=== PATIENT | female | born 1990 | race American Indian/Alaskan Native ===

== ENCOUNTER 2017-09-21 21:08 | Observation (INO) | payer OTHER ==
[2017-09-21 21:17] VITALS: BMI 32.3
--- NOTE | 2017-09-21 21:19 | ED PDOC ---
Arrival/HPI - General Time Seen by Provider: 09/21/17 21:13 Historian: Patient - History of Present Illness Narrative History of Present Illness (Text): 09/21/17 21:14 27 y/o female, no significant pmh, approx. 9 weeks , nkda, c/o headache started yesterday with no fall or trauma. Aching and throbbing, tightness headache around the headache, no change in vision, no nausea or vomiting, no night sweat, no rash, no vaginal bleeding or discharge, no pelvic pain, no numbness or tingling, no other medical or psychological complaints. Past Medical History - Provider Review Nursing Documentation Reviewed: Yes Family/Social History - Physician Review Nursing Documentation Reviewed: Yes Family/Social History: Unknown Family HX Allergies/Home Meds Allergies/Adverse Reactions: Allergies No Known Allergies Allergy (Verified 09/21/17 21:20) Home Medications: Home Meds Medication Instructions Recorded Confirmed No Known Home Med 09/22/17 09/22/17 Review of Systems - Review of Systems Constitutional: absent: Fatigue, Weight Change Eyes: absent: Vision Changes ENT: absent: Hearing Changes Respiratory: absent: SOB, Cough Cardiovascular: absent: Chest Pain Gastrointestinal: absent: Abdominal Pain, Nausea, Vomiting Musculoskeletal: absent: Arthralgias, Back Pain Skin: absent: Rash, Pruritis Neurological: Headache. absent: Dizziness Psychiatric: absent: Anxiety, Depression Physical Exam Vital Signs Temp Pulse Resp BP Pulse Ox 09/22/17 02:11 70 16 126/73 100 09/21/17 22:02 81 18 121/74 09/21/17 21:50 98.4 F 81 18 136/79 100 Pain Distress: Severe - Systems Exam Head: Present: Atraumatic, Normocephalic, Other (no temporal tenderness). No: Tenderness, Contusion, Swelling, Ecchymosis, Abrasion, Laceration Pupils: Present: PERRL Extroacular Muscles: Present: EOMI Conjunctiva: Present: Normal Mouth: Present: Moist Mucous Membranes Nose (External): Present: Atraumatic. No: Abrasion, Contusion, Laceration Nose (Internal): Present: Normal Inspection, No Active Bleeding. No: Rhinorrhea , Septal Hematoma, Epistaxis Neck: Present: Normal Range of Motion, Trachea Midline. No: Meningeal Signs, MIDLINE TENDERNESS, Paraspinal Tenderness, Lymphadenopathy Respiratory/Chest: Present: Clear to Auscultation, Good Air Exchange. No: Respiratory Distress, Accessory Muscle Use Cardiovascular: Present: Regular Rate and Rhythm, Normal S1, S2. No: Murmurs Abdomen: Present: Normal Bowel Sounds. No: Tenderness, Distention, Peritoneal Signs, Rebound, Guarding Back: Present: Normal Inspection Upper Extremity: Present: Normal Inspection. No: Cyanosis, Edema Lower Extremity: Present: Normal Inspection. No: Edema Neurological: Present: GCS=15, CN II-XII Intact, Speech Normal, Motor Func Grossly Intact, Gait Normal, Memory Normal Skin: Present: Warm, Dry, Normal Color. No: Rashes Psychiatric: Present: Alert, Oriented x 3, Normal Insight, Normal Concentration Medical Decision Making ED Course and Treatment: 09/21/17 21:21 -UA -IVF/reglan (confirmed with Dr. Almaguer)/benadryl/tylenol -oberve and reassess 09/22/17 01:26 -Urine hcg is positive -UA show +UTI -Labs are non-significant -Pt. still having significant amount of headache but afebrile, still having 8/ 10 headache, will need MRI of the head as she is to rule out mass lesion -I will admit the patient for observation for MRI head w/o contrast. -Case discussed with Dr. Almaguer, he examined the patient and agreed this patient need to be kept over night. -I spoke to the medical operations supervisor DR. Alfaro and Dr. Pardo, agreed to observe the patient over night and they will follow up with the MRI result tomorrow. -Pt. agreed to be admitted as her headache only decrease slightly. -Me and Dr. Almaguer offered alternative pain medication but patient refused at this time until MRI is out. - Lab Interpretations Lab Results: 09/21/17 22:45 09/21/17 23:55 Lab Results 09/21/17 23:55: Sodium 140, Potassium 3.5 L, Chloride 108 H, Carbon Dioxide 22, Anion Gap 14, BUN 6 L, Creatinine 0.6 L, Est GFR ( Amer) > 60, Est GFR ( Non-Af Amer) > 60, Random Glucose 90, Calcium 9.5, Total Bilirubin 0.3, AST 15, ALT 22, Alkaline Phosphatase 57, Total Protein 7.5, Albumin 4.0, Globulin 3.5, Albumin/Globulin Ratio 1.2 09/21/17 22:45: WBC 11.6 H, RBC 4.60, Hgb 13.1, Hct 38.6, MCV 83.9, MCH 28.5, MCHC 33.9, RDW 14.0, Plt Count 397, MPV 9.8, Gran % 82.3 H, Lymph % (Auto) 14.2 L, [place] % (Auto) 3.4, Eos % (Auto) 0.0 L, Baso % (Auto) 0.1, Gran # 9.55 H, Lymph # (Auto) 1.7, [place] # (Auto) 0.4, Eos # (Auto) 0.0, Baso # (Auto) 0.01 09/21/17 09:46: Urine Color Yellow, Urine Appearance Sl cloudy, Urine pH 6.5, Ur Specific [place] 1.025, Urine Protein Trace H, Urine Glucose (UA) Negative, Urine Ketones >=80, Urine Blood Negative, Urine Nitrate Negative, Urine Bilirubin Negative, Urine Urobilinogen 0.2, Ur Leukocyte Esterase Small H, Urine RBC 0 - 2, Urine WBC 2 - 5, Ur Epithelial Cells Many, Urine Bacteria Many - RAD Interpretation Radiology Orders: 09/22/17 01:32 BRAIN WITHOUT CONTRAST [MRI] Routine - Medication Orders Current Medication Orders: Acetaminophen (Tylenol 325mg Tab) 650 mg PO Q4 PRN PRN Reason: Headache Last Admin: 09/22/17 06:59 Dose: 650 mg [facility] Pain/Vitals Document 09/22/17 06:59 MAD (Rec: 09/22/17 07:00 MAD [facility] [id number]) Pain Reassessment Is This A Pain ReAssessment? Yes Sleep Is patient sleeping during reassessment? No Presence of Pain Presence of Pain Yes Location Pain Location Body Site Parietal Description Throbbing Intensity 8 Scale Used Numeric Pain Behavior Moaning Alleviating Factors Medication Re-Assess: [facility] Pain/Vitals Document 09/22/17 07:59 MCV (Rec: 09/22/17 09:59 MCV [facility] [place]-[id number]) Pain Reassessment Is This A Pain ReAssessment? Yes Presence of Pain Presence of Pain Yes Pain Scale Used Pain Scale Used Numeric Location Pain Location Body Granulator Tender Description Pressure Intensity 5 Scale Used Numeric Pain Behavior Restlessness Facial Grimacing Aggravating Factors None Alleviating Factors Medication Magnesium Sulfate 2 gm/ Sodium (Chloride) 104 mls @ 102 mls/hr IVPB ONCE ONE Stop: 09/22/17 15:14 Ceftriaxone Sodium (Rocephin 2 Gm Ivpb) 2 gm in 100 mls @ 100 mls/hr IVPB Q12H MARTHA PRN Reason: Protocol Ampicillin 2 gm/ Sodium (Chloride) 100 mls @ 200 mls/hr IVPB Q4 MARTHA PRN Reason: Protocol Ibuprofen (Motrin Tab) 600 mg PO Q6H PRN PRN Reason: breakthrough mild pain Discontinued Medications Acetaminophen (Tylenol 325mg Tab) 650 mg PO STAT STA Stop: 09/21/17 21:23 Last Admin: 09/21/17 21:49 Dose: 650 mg MAR Pain/Vitals Document 09/21/17 21:49 AD (Rec: 09/21/17 21:50 AD [id number]) Pain Reassessment Is This A Pain ReAssessment? No Presence of Pain Presence of Pain Yes Pain Scale Used Pain Scale Used Numeric Location Pain Location Body Granulator Tender Intensity 8 Scale Used Numeric Pain Behavior Facial Grimacing Diphenhydramine HCl (Benadryl) 50 mg IVP STAT STA Stop: 09/21/17 21:23 Last Admin: 09/21/17 21:49 Dose: 50 mg IVP Administration Document 09/21/17 21:49 AD (Rec: 09/21/17 21:49 AD [id number]) Charges for Administration # of IVP Administrations 1 Sodium Chloride (Sodium Chloride 0.9%) 1,000 mls @ 999 mls/hr IV .Q1H1M STA Stop: 09/21/17 22:22 Last Admin: 09/21/17 21:49 Dose: 999 mls/hr eMAR Start Stop Document 09/21/17 21:49 AD (Rec: 09/21/17 21:49 AD [id number]) Intravenous Solution Start Date 09/21/17 Start Time 21:49 Potassium Chloride (Potassium Chloride 10 Meq/100 Ml) 10 meq in 100 mls @ 50 mls/hr IVPB ONCE ONE Stop: 09/22/17 04:15 Last Admin: 09/22/17 03:45 Dose: 50 mls/hr eMAR Start Stop Document 09/22/17 03:45 MAD (Rec: 09/22/17 03:45 [id number]) Intravenous Solution Start Date 09/22/17 Start Time 03:45 Ampicillin 2 gm/ Sodium (Chloride) 100 mls @ 200 mls/hr IVPB Q4 MARTHA PRN Reason: Protocol Lidocaine HCl (Lidocaine 2% 20ml Vial) 20 ml IJ ONCE STA Stop: 09/22/17 12:31 Metoclopramide HCl (Reglan) 10 mg IVP STAT STA Stop: 09/21/17 21:23 Last Admin: 09/21/17 21:49 Dose: 10 mg IVP Administration Document 09/21/17 21:49 AD (Rec: 09/21/17 21:49 AD [id number]) Charges for Administration # of IVP Administrations 1 Nitrofurantoin Macrocrystals (Macrobid) 100 mg PO STAT STA PRN Reason: Protocol Stop: 09/22/17 01:35 Last Admin: 09/22/17 01:59 Dose: 100 mg Potassium Chloride (Potassium Chloride Oral Soln) 40 meq PO ONCE ONE Stop: 09/22/17 09:07 Last Admin: 09/22/17 09:58 Dose: 40 meq - PA / PICKLE CUTTER / Resident Statement MD/DO has reviewed & agrees with the documentation as recorded. MD/DO has examined the patient and agrees with the treatment plan. Disposition/Present on Arrival - Present on Arrival Any Indicators Present on Arrival: No History of DVT/PE: No History of Uncontrolled Diabetes: No Urinary Catheter: No History of Decub. Ulcer: No - Disposition Have Diagnosis and Disposition been Completed?: Yes Diagnosis: UTI (urinary tract infection), Headache Disposition: HOSPITALIZED Disposition Time: 21:21 Patient Plan: Admission, Observation Patient Problems: Current Active Problems Problem Status Onset UTI (urinary tract infection) Acute Headache Acute Condition: STABLE
[2017-09-21] MEDS ORDERED: DiphenhydrAMINE 50 mg/ml Inj IVP STA (21:22)
[2017-09-21] MEDS ORDERED: Sodium Chloride 0.9% 1,000 ML IV STA (21:22)
[2017-09-21 22:00] LABS: PH,URINE 6.5 (4.7-8.0); URINE BILIRUBIN NEGATIVE (NEGATIVE); URINE BLOOD NEGATIVE (NEGATIVE); URINE GLUCOSE (UA) NEGATIVE (NEGATIVE); URINE LEUKOCYTE ESTERASE SMALL Leu/uL (NEGATIVE); URINE PROTEIN TRACE mg/dL (<30 mg/dL); URINE UROBILINOGEN 0.2 E.U./dL (<1 E.U./dL)
[2017-09-21 22:02] LABS: URINE APPEARANCE SL CLOUDY (CLEAR); URINE COLOR YELLOW (YELLOW)
[2017-09-21 22:12] LABS: URINE BACTERIA MANY (NEG); URINE EPITHELIAL CELLS MANY /hpf (0-5); URINE RBC 0 - 2 /hpf (0-2)
[2017-09-21 23:26] LABS: BASO # 0.01 K/mm3 (0.0-2.0); BASO % 0.1 % (0.0-3.0); GRAN # 9.55 (1.4-6.5); GRAN % 82.3 % (50.0-68.0); HEMOGLOBIN 13.1 g/dL (12.0-16.0); LYMPH # 1.7 (1.2-3.4); LYMPH % 14.2 % (22.0-35.0); MEAN CELL VOLUME 83.9 fl (80.0-105.0); MEAN CORPUSCULAR HEMOGLOBIN 28.5 pg (25.0-35.0); MEAN CORPUSCULAR HGB CONC 33.9 g/dl (31.0-37.0); MEAN PLATELET VOLUME 9.8 fl (7.0-11.0); MONO # 0.4 (0.1-0.6); MONO % 3.4 % (1.0-6.0); RBC 4.6 10^6/uL (3.5-6.1); WHITE BLOOD COUNT 11.6 10^3/ul (4.5-11.0)
[2017-09-22 00:12] LABS: ALB/GLOB RATIO 1.2 (1.1-1.8); ALT/SGPT 22 U/L (7-56); AST/SGOT 15 U/L (14-36); BLOOD UREA NITROGEN 6 mg/dL (7-21); CALCIUM 9.5 mg/dL (8.4-10.5); GFR AFRICAN-AMERICAN > 60; GFR NON-AFRICAN AMERICAN > 60
--- NOTE | 2017-09-22 02:13 | CP.PCM.HP ---
<Tj Alfaro - Last Filed: 09/22/17 02:18> History of Present Illness - History of Present Illness History of Present Illness: Subjective: CC: Headache HPI: Patient is a 27 year old female with no significant past medical history of who presents to the emergency department for evaluation and treatment of headache which began on 09/21/16 at approximately 5am. Pt states the headache woke her up from sleep without any specific provoking event. Characterizes it has being a dull aching sensation that remains localized to the crown of the skull. Denies exacerbating and remitting factors. Denies associated visual and auditory changes. Denies trauma to the head and loss of consciousness. Tried OTC dayquil and Tylenol without any relief. Admits to associated bouts of nausea and nonbloody nonbilious vomitting x 4. Denies recent travel and sick contacts. Denies recent change in diet. It is important to note that the patient estimates that she is currently 9 weeks . Patient denies intractable fever, chills, dizziness, blurry vision, ringing in the ears, chest pain, shortness of breath, abdominal pain, diarrhea, constipation, and urinary symptoms. ROS: 12 point review of systems negative except as indicated in HPI PMHx: denies PSHx: denies Family Hx: denies Social Hx: denies ETOH use, tobacco use, illicit drug use Medications: Please see medication reconciliation PMD: denies Pharmacy: does not take medications at home Physical Examination: - Constitutional Appears: Non-toxic, No Acute Distress - Head Exam Head Exam: atraumatic, normocephalic - Eye Exam Eye Exam: Normal appearance, PERRL. absent: Scleral icterus - ENT Exam ENT Exam: Mucous Membranes Moist - Neck Exam Neck exam: Normal Inspection - Respiratory Exam Respiratory Exam: Normal Breathing Pattern - Cardiovascular Exam Cardiovascular Exam: +S1, +S2. absent: Gallop, JVD - GI/Abdominal Exam GI & Abdominal Exam: Normal Bowel Sounds - Extremities Exam Extremities exam: Negative for: calf tenderness - Neurological Exam Neurological exam: Patient is awake, alert, responds to verbal stimuli, answers questions appropriately, follows commands, and moves extremities past midline, CN II- XII intact - Psychiatric Exam Psychiatric exam: Normal Affect, Normal Mood - Skin Skin Exam: warm and dry Assessment and Plan: Patient is a 27 year old female with no significant past medical history of who was admitted for evaluation and treatment of a headache, nausea, and vomiting. Headache - tylenol PRN pain - MRI of head ordered by ED MAGNETIC PROSPECTING SUPERVISOR and is pending at time of admission Nausea/Vomitting - regular diet as tolerated - zofran prn nausea after QTc established with EKG Hypokalemia - repleted - mag level ordered - monitor closely via CMP Prophylaxis - DVT ppx- scds - GI ppx- famotidine Patient case discussed with and plan approved by attending physician. Present on Admission - Present on Admission Any Indicators Present on Admission: No Past Patient History - Past Social History Smoking Status: Never Smoked - PSYCHIATRIC Hx Substance Use: No - SURGICAL HISTORY Hx Surgeries: No - ANESTHESIA Hx Anesthesia: No Hx Anesthesia Reactions: No Hx Malignant Hyperthermia: No Meds Allergies/Adverse Reactions: Allergies Allergy/AdvReac Type Severity Reaction Status Date / Time No Known Allergies Allergy Verified 09/21/17 21:20 Results - Vital Signs Recent Vital Signs: Last Vital Signs Temp 98.4 F 09/21/17 21:50 Pulse 81 09/21/17 22:02 Resp 18 09/21/17 22:02 BP 121/74 09/21/17 22:02 Pulse Ox 100 09/21/17 21:50 - Labs Result Diagrams: 09/21/17 22:45 09/21/17 23:55 Labs: Laboratory Results - last 24 hr 09/21/17 09/21/17 09/21/17 09:46 22:45 23:55 WBC 11.6 H RBC 4.60 Hgb 13.1 Hct 38.6 MCV 83.9 MCH 28.5 MCHC 33.9 RDW 14.0 Plt Count 397 MPV 9.8 Gran % 82.3 H Lymph % (Auto) 14.2 L [place] % (Auto) 3.4 Eos % (Auto) 0.0 L Baso % (Auto) 0.1 Gran # 9.55 H Lymph # (Auto) 1.7 [place] # (Auto) 0.4 Eos # (Auto) 0.0 Baso # (Auto) 0.01 Sodium 140 Potassium 3.5 L Chloride 108 H Carbon Dioxide 22 Anion Gap 14 BUN 6 L Creatinine 0.6 L Est GFR ( Amer) > 60 Est GFR (Non-Af Amer) > 60 Random Glucose 90 Calcium 9.5 Total Bilirubin 0.3 AST 15 ALT 22 Alkaline Phosphatase 57 Total Protein 7.5 Albumin 4.0 Globulin 3.5 Albumin/Globulin Ratio 1.2 Urine Color Yellow Urine Appearance Sl cloudy Urine pH 6.5 Ur Specific [place] 1.025 Urine Protein Trace H Urine Glucose (UA) Negative Urine Ketones >=80 Urine Blood Negative Urine Nitrate Negative Urine Bilirubin Negative Urine Urobilinogen 0.2 Ur Leukocyte Esterase Small H Urine RBC 0 - 2 Urine WBC 2 - 5 Ur Epithelial Cells Many Urine Bacteria Many <Sandor Pardo MD - Last Filed: 09/23/17 11:59> Results - Vital Signs Recent Vital Signs: Last Vital Signs Temp 98.9 F 09/23/17 08:51 Pulse 83 09/23/17 08:51 Resp 20 09/23/17 08:51 BP 105/64 09/23/17 08:51 Pulse Ox 97 09/23/17 08:51 - Labs Result Diagrams: 09/23/17 06:30 09/23/17 06:30 Labs: Laboratory Results - last 24 hr 09/22/17 09/22/17 09/22/17 14:00 14:00 14:00 WBC RBC Hgb Hct MCV MCH MCHC RDW Plt Count MPV Gran % Lymph % (Auto) [place] % (Auto) Eos % (Auto) Baso % (Auto) Gran # Lymph # (Auto) [place] # (Auto) Eos # (Auto) Baso # (Auto) ESR 20 Sodium Potassium Chloride Carbon Dioxide Anion Gap BUN Creatinine Est GFR ( Amer) Est GFR (Non-Af Amer) Random Glucose Calcium Total Bilirubin AST ALT Alkaline Phosphatase C-Reactive Protein 15.70 H Total Protein Albumin Globulin Albumin/Globulin Ratio RPR Nonreactive 09/23/17 09/23/17 06:30 06:30 WBC 12.1 H RBC 4.08 Hgb 11.3 L Hct 34.5 L MCV 84.6 MCH 27.7 MCHC 32.8 RDW 14.2 Plt Count 311 MPV 9.1 Gran % 80.9 H Lymph % (Auto) 14.8 L [place] % (Auto) 4.0 Eos % (Auto) 0.2 L Baso % (Auto) 0.1 Gran # 9.77 H Lymph # (Auto) 1.8 [place] # (Auto) 0.5 Eos # (Auto) 0.0 Baso # (Auto) 0.01 ESR Sodium 141 Potassium 3.6 Chloride 107 Carbon Dioxide 23 Anion Gap 15 BUN 4 L Creatinine 0.6 L Est GFR ( Amer) > 60 Est GFR (Non-Af Amer) > 60 Random Glucose 106 Calcium 9.1 Total Bilirubin 0.3 AST 15 ALT 20 Alkaline Phosphatase 55 C-Reactive Protein Total Protein 7.5 Albumin 3.8 Globulin 3.7 Albumin/Globulin Ratio 1.0 L RPR Attending/Attestation - Attestation I have personally seen and examined this patient.: Yes I have fully participated in the care of the patient.: Yes I have reviewed all pertinent clinical information: Yes Notes (Text): -I agree with the above H&P completed by the resident physician with the following additions and/or changes: -The patient is a 28 year old women, who is 9 weeks , presenting with intractable headache with associated N/V. She denies focal deficits, syncope, dysuria or F/C. Because CT-head is contraindicated in this patient, she will be admitted for observation in order to obtain a brain MRI to r/o bleed. Of note, her UA shows some bacturia and therefore a urine culture will be obtained and empiric treatment should be started. PRN Tylenol for headache.
--- NOTE | 2017-09-22 06:49 | CP.PCM.PN ---
Subjective - Date & Time of Evaluation Date of Evaluation: 09/22/17 Time of Evaluation: 06:49 - Subjective Subjective: # 22 angiocath was inserted in right hand dorsum. Dx: Poor venous access. Objective - Vital Signs/Intake and Output Vital Signs (last 24 hours): Temp Pulse Resp BP Pulse Ox 98.6 F 67 18 95/48 L 100 09/22/17 04:51 09/22/17 04:51 09/22/17 04:51 09/22/17 04:51 09/22/17 02:11 Intake and Output: 09/21/17 09/22/17 18:59 06:59 Intake Total 60 Balance 60 - Medications Medications: Current Medications Acetaminophen (Tylenol 325mg Tab) 650 mg PO Q4 PRN PRN Reason: Headache Last Admin: 09/22/17 02:59 Dose: 650 mg
[2017-09-22 08:11] LABS: EOS % 0.1 % (1.5-5.0); GRAN # 9.49 (1.4-6.5); HEMOGLOBIN 11.8 g/dL (12.0-16.0); LYMPH # 1.5 (1.2-3.4); LYMPH % 13.1 % (22.0-35.0); MEAN CELL VOLUME 83.9 fl (80.0-105.0); MEAN CORPUSCULAR HEMOGLOBIN 28.4 pg (25.0-35.0); MEAN CORPUSCULAR HGB CONC 33.8 g/dl (31.0-37.0); MEAN PLATELET VOLUME 9.4 fl (7.0-11.0); MONO # 0.6 (0.1-0.6); MONO % 4.8 % (1.0-6.0); RBC 4.16 10^6/uL (3.5-6.1); RED CELL DISTRIBUTION WIDTH 13.9 % (11.5-14.5); WHITE BLOOD COUNT 11.6 10^3/ul (4.5-11.0)
[2017-09-22 08:27] LABS: ALB/GLOB RATIO 1.2 (1.1-1.8); ALBUMIN 4.1 g/dL (3.0-4.8); ALT/SGPT 17 U/L (7-56); AST/SGOT 22 U/L (14-36); BLOOD UREA NITROGEN 5 mg/dL (7-21); CALCIUM 9.9 mg/dL (8.4-10.5); GFR AFRICAN-AMERICAN > 60; GFR NON-AFRICAN AMERICAN > 60
[2017-09-22] MEDS ORDERED: Potassium Chloride 40 mEq/30 ml LIQ UD PO ONE (09:06)
[2017-09-22] MEDS ORDERED: Lidocaine 2% Inj (20ml) IJ STA (12:30)
--- NOTE | 2017-09-22 14:02 | PCM.PROC ---
Procedures Attestation:: I certify that I have explained the specified Operation(s) or Procedure(s), risks, benefits and reasonable alternatives to the Patient and/or other person responsible. The opportunity was given to ask questions and all questions answered - Lumbar Puncture Consent Obtained: Written Consent Time Out Performed: Yes Patient Position: Right Lateral Decubitius Skin Prep: Povidone-Iodine 1% Local Anesthetic Used: Lidocaine 2% Spinal Needle Gauge: 20G Interspace Used: L4-L5 Complications: Unable to obtain CSF
[2017-09-22] MEDS ORDERED: Magnesium Sulfate 2 GM in Sodium Chloride 0.9% 100 ML IVPB ONE ×2 (14:13→21:30)
--- NOTE | 2017-09-22 14:34 | MRI ---
PROCEDURE: MRI BRAIN WITHOUT CONTRAST HISTORY: headache, approx 8-9 weeks COMPARISON: None. TECHNIQUE: Multiplanar, multisequence MR images of the brain were obtained without intravenous contrast enhancement. FINDINGS: HEMORRHAGE: None DWI: No evidence of an acute or early subacute infarction. BRAIN PARENCHYMA: No mass effect or edema. No atrophy or chronic microvascular ischemic changes. VENTRICLES: Unremarkable. No hydrocephalus. CRANIUM: Unremarkable. ORBITS: Grossly unremarkable. PARANASAL SINUSES/MASTOIDS: Clear VASCULAR SYSTEM: Skull base flow voids intact. OTHER FINDINGS: None. IMPRESSION: Unremarkable non contrast enhanced MRI of the brain.
--- NOTE | 2017-09-22 14:50 | CARD ---
APPROVED REPORT EKG Measurement Heart [id number] <Conclusion> Normal sinus rhythm Normal ECG
[2017-09-22] MEDS: cefTRIAXone 2 GM IN NS 2 GM/100 ML BAG IVPB SCH (15:14)
[2017-09-22] MEDS ORDERED: AMPicillin 2 GM in Sodium Chloride 0.9% 100 ML IVPB SCH (16:00)
--- NOTE | 2017-09-22 16:18 | MRI ---
PROCEDURE: MRA and MRV brain dated 09/22/2017 HISTORY: Rule out CVT; per neurology; include venous phase COMPARISON: Correlation made with concurrent MRI brain. TECHNIQUE: 3D time of flight MR angiography of the intracranial arteries was performed. Rotating maximum intensity projection images were generated. FINDINGS: INTERNAL CAROTID ARTERIES: The distal internal carotid arteries including the petrous segments are widely patent. There does appear to be some mild localized narrowing of the proximal right-sided cavernous segment. The supraclinoid carotid arteries are widely patent as are the remaining. ANTERIOR CEREBRAL ARTERIES: Unremarkable. A1 and A2 segments are widely patent. Smaller distal branches unremarkable, as visualized. MIDDLE CEREBRAL ARTERIES: Unremarkable. M1 and M2 segments are widely patent. Perisylvian branches grossly symmetric. POSTERIOR CIRCULATION: Basilar Artery: Unremarkable. Distal Vertebral Arteries: Unremarkable. Posterior Cerebral Arteries: Unremarkable. Posterior Inferior Cerebellar Arteries: Unremarkable. ANEURYSM/ VASCULAR MALFORMATIONS: No evidence of large aneurysm nor vascular malformation. OTHER FINDINGS: MR venography demonstrates patent sagittal sinus as well as patent prominent right-sided transverse sigmoid sinus and jugular vein. The left transverse sinus is not visualized and may in fact be hypoplastic as there are no significant increased collateral or dilatation of cortical draining veins left cerebral hemisphere so far as can be seen. No definitive thrombosis is identified on standard MRI brain. The left sigmoid sinus is diminutive with apparent diminutive left jugular bulb and jugular vein. IMPRESSION: The no evidence of occlusion of the cerebral vasculature however there does appear to be mild localized narrowing of the proximal right cavernous carotid segment. Otherwise unremarkable MRA brain. The sagittal sinus is patent with no evidence of thrombosis. There is prominent right transverse and sigmoid sinus as well as jugular bulb. The left transverse sinus is not seen and the left sigmoid sinus and jugular bulb are diminutive. 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 Clinical correlation recommended
--- NOTE | 2017-09-22 17:12 | CP.PCM.CON ---
History of Present Illness - History of Present Illness History of Present Illness: Ms. Quiles is a 27-year-old woman with no significant past medical history, who is 9 weeks , and developed the sudden onset of severe headache last night (at around 3 AM) that was associated with nausea, vomiting. She presented to the ED and labs showed a mild leukocytosis. She did not have fever. There was concern for meningitis, so an LP was attempted. However, I did not feel this was a significant concern. I ordered MRI as well as MRA/V without contrast and there was not any definitive pathology noted. Review of Systems - Review of Systems All systems: reviewed and no additional remarkable complaints except Past Patient History - Past Social History Smoking Status: Never Smoked - MUSCULOSKELETAL/RHEUMATOLOGICAL Hx Falls: No - GENITOURINARY/GYNECOLOGICAL Hx Urinary Tract Infection: Yes Other/Comment: 8-9 weeks - PSYCHIATRIC Hx Substance Use: No - SURGICAL HISTORY Hx Surgeries: No - ANESTHESIA Hx Anesthesia: No Hx Anesthesia Reactions: No Hx Malignant Hyperthermia: No Meds Allergies/Adverse Reactions: Allergies Allergy/AdvReac Type Severity Reaction Status Date / Time No Known Allergies Allergy Verified 09/21/17 21:20 - Medications Medications: Current Medications Acetaminophen (Tylenol 325mg Tab) 650 mg PO Q4 PRN PRN Reason: Headache Last Admin: 09/22/17 06:59 Dose: 650 mg Ceftriaxone Sodium (Rocephin 2 Gm Ivpb) 2 gm in 100 mls @ 100 mls/hr IVPB Q12H [facility] PRN Reason: Protocol Last Admin: 09/22/17 15:14 Dose: 100 mls/hr Ampicillin 2 gm/ Sodium (Chloride) 100 mls @ 200 mls/hr IVPB Q4 [facility] PRN Reason: Protocol Ibuprofen (Motrin Tab) 600 mg PO Q6H PRN PRN Reason: breakthrough mild pain Last Admin: 09/22/17 15:15 Dose: 600 mg Physical Exam - Constitutional Appears: Well - Head Exam Head Exam: ATRAUMATIC, NORMAL INSPECTION, NORMOCEPHALIC - Eye Exam Eye Exam: EOMI, Normal appearance, PERRL - Respiratory Exam Respiratory Exam: Clear to Auscultation Bilateral, NORMAL BREATHING PATTERN - Cardiovascular Exam Cardiovascular Exam: REGULAR RHYTHM - GI/Abdominal Exam GI & Abdominal Exam: Normal Bowel Sounds, Soft. absent: Tenderness - Rectal Exam Rectal Exam: Deferred - Neurological Exam Neurological exam: Alert, CN II-XII Intact, Normal Gait, Oriented x3, Reflexes Normal Additional comments: Speech is fluent, no dysarthria, memory and attention are intact. She is AAOX3. Full strength throughout out. Normal reflexes. Normal sensation. She complained of headache, not neck pain with sudden neck flexion, but was able to touch chin to chest without stiffness. Kernig was negative. Brudzinsky was negative. Gait is normal. Results - Vital Signs Recent Vital Signs: Last Vital Signs Temp 98.9 F 09/22/17 07:00 Pulse 90 09/22/17 07:00 Resp 20 09/22/17 07:00 BP 115/71 09/22/17 07:00 Pulse Ox 98 09/22/17 07:00 - Labs Result Diagrams: 09/22/17 07:00 09/22/17 07:00 Labs: Laboratory Results - last 24 hr 09/22/17 09/22/17 09/22/17 02:30 07:00 07:00 WBC 11.6 H RBC 4.16 Hgb 11.8 L Hct 34.9 L MCV 83.9 MCH 28.4 MCHC 33.8 RDW 13.9 Plt Count 351 MPV 9.4 Gran % 82.0 H Lymph % (Auto) 13.[address] [place] % (Auto) 4.8 Eos % (Auto) 0.1 L Baso % (Auto) 0.0 Gran # 9.49 H Lymph # (Auto) 1.5 [place] # (Auto) 0.6 Eos # (Auto) 0.0 Baso # (Auto) 0.00 Sodium 138 Potassium 3.2 L Chloride 106 Carbon Dioxide 22 Anion Gap 13 BUN 5 L Creatinine 0.6 L Est GFR ( Amer) > 60 Est GFR (Non-Af Amer) > 60 Random Glucose 92 Calcium 9.9 Magnesium 1.8 Total Bilirubin 0.3 AST 22 ALT 17 Alkaline Phosphatase 75 Total Protein 7.5 Albumin 4.1 Globulin 3.4 Albumin/Globulin Ratio 1.2 Assessment & Plan (1) Headache Assessment and Plan: May be tension related. Unlikely to be meningitis and unlikely to be CVT. Other causes could be due to hormonal changes in . She states that the magnesium sulfate has brought the headache down from 10/10 to 5/10. She is improving. I recommend another dose of magnesium sulfate 2 grams IV in 6 hours. IF the patient is stable and pain is improved. She may be discharged home with treatment for UTI and magnesium oxide 400 mg PO Q12. Follow up with outpatient neurology. Thank you. Status: Acute Priority: High
[2017-09-22] MEDS: AMPicillin 2 GM in Sodium Chloride 0.9% 100 ML IVPB SCH ×2 (18:00→22:33)
--- NOTE | 2017-09-23 01:53 | CON ---
DATE: 09/22/2017 LOCATION: The patient is seen earlier this morning in 573, bed 1. CHIEF COMPLAINT: Sudden onset of headaches x1 day. HISTORY OF PRESENT ILLNESS: This is a 27-year-old female originally from [facility], last visit from [facility] was in 04/2017 who is now 9 weeks with no significant past medical history, admitted with a new-onset of headache. She denies any fevers or any chills. No blurred vision. No sore throat. No ear aches, no oral lesions, no nasal pain, just the headache on top of her head. She states she has never had a headache like this and she normally does get headaches every now and then, but it has never been this severe. REVIEW OF SYSTEMS: Reveals no abdominal pain, diarrhea, or constipation. No pelvic pain. No dysuria or frequency. No fevers or chills. No rash. No joint pain. PAST MEDICAL HISTORY: Noncontributory. She states that she has not had any medical problems in the past. She takes no medications. PAST SURGICAL HISTORY: Noncontributory. She has not had any operations. SOCIAL HISTORY: Her boyfriend is at the bedside and she is not an intravenous drug abuser and she does not use any alcohol. At this time, she does not have any doctor. She has not received any care. Has no pets. No recent travel except in April to [facility]. ALLERGIES: SHE DOES NOT HAVE ANY ALLERGIES TO ANY ANTIBIOTICS. MEDICATIONS: She takes no medications. PHYSICAL EXAMINATION: GENERAL: She is in bed, nontoxic. She is answering questions appropriately. VITAL SIGNS: Temperature of 98.9, pulse of 81 to 90, respiratory rate of 20, and blood pressure is 121/70, it was down to 95/48 and 115/71. HEENT: Pupils are equal, reactive to light and accommodation. Extraocular muscles intact. Conjunctiva is pink. The oral cavity is normal. She has two necrotic teeth on the right side and one necrotic tooth on the left side. The ear examinations are all within limits. The sinus examination on palpation and percussion is normal. No evidence of sinus infections. NECK: Supple, no lymphadenopathy, no thyromegaly, no masses. LUNGS: Clear. HEART: Normal S1, S2. ABDOMEN: Soft, nontender. No organomegaly, no rebound or guarding. LABORATORY DATA: Reveals a white count of 11,600; hemoglobin of 13, platelets of 397. Chemistry reveals a BUN of 6, creatinine of 0.6. Urinalysis is noted where patient has many bacteria, many epithelial cells, 2 to 3 wbc's, slightly cloudy. Patient's emergency room chart is reviewed. EKG is noted. Patient also had an MRI of the brain, which is an unremarkable noncontrast MRI of the brain. History and physical examination by Dominic was reviewed. Patient also had an MRA of the brain, the results are not available at this time, and Dr. Eh Lang's procedure note is reviewed for a spinal tap. Emergency room chart is reviewed. ASSESSMENT AND PLAN: This is a 27-year-old female from [facility], 9 weeks with a new onset of headache. No other evidence of meningitis; however, we will start empiric ceftriaxone and ampicillin, also Listeria commonly occurs in third trimester, this patient is not behaving like meningitis, the onset of the headache is acute. There is no fevers, mild leukocytosis; however, we will treat with the ampicillin and ceftriaxone. We will check on the culture, blood cultures, urine cultures, spinal cord cultures. Awaiting for spinal cord cell count, glucose, protein, Gram stain, and we will also order an HIV test, an RPR and a HIV PCR, and we will make further recommendations upon availability of initial results. Pending pancultures, sedimentation rate, C-reactive protein, and a vasculitis workup. Jonah Amaya MD
[2017-09-23] MEDS: AMPicillin 2 GM in Sodium Chloride 0.9% 100 ML IVPB SCH ×5 (02:06→16:37)
[2017-09-23] MEDS: cefTRIAXone 2 GM IN NS 2 GM/100 ML BAG IVPB SCH ×2 (02:43→14:07)
[2017-09-23 07:07] LABS: BASO # 0.01 K/mm3 (0.0-2.0); BASO % 0.1 % (0.0-3.0); EOS % 0.2 % (1.5-5.0); GRAN # 9.77 (1.4-6.5); GRAN % 80.9 % (50.0-68.0); HEMOGLOBIN 11.3 g/dL (12.0-16.0); LYMPH # 1.8 (1.2-3.4); LYMPH % 14.8 % (22.0-35.0); MEAN CELL VOLUME 84.6 fl (80.0-105.0); MEAN CORPUSCULAR HEMOGLOBIN 27.7 pg (25.0-35.0); MEAN CORPUSCULAR HGB CONC 32.8 g/dl (31.0-37.0); MEAN PLATELET VOLUME 9.1 fl (7.0-11.0); MONO # 0.5 (0.1-0.6); RBC 4.08 10^6/uL (3.5-6.1); RED CELL DISTRIBUTION WIDTH 14.2 % (11.5-14.5); WHITE BLOOD COUNT 12.1 10^3/ul (4.5-11.0)
[2017-09-23 07:26] LABS: ALBUMIN 3.8 g/dL (3.0-4.8); ALT/SGPT 20 U/L (7-56); AST/SGOT 15 U/L (14-36); BLOOD UREA NITROGEN 4 mg/dL (7-21); CALCIUM 9.1 mg/dL (8.4-10.5); GFR AFRICAN-AMERICAN > 60; GFR NON-AFRICAN AMERICAN > 60
[2017-09-23] MEDS: Magnesium Oxide 400 mg Tab UD PO SCH ×2 (12:26→17:22)
--- NOTE | 2017-09-23 16:25 | CP.PCM.PN ---
Subjective - Date & Time of Evaluation Date of Evaluation: 09/23/17 Time of Evaluation: 10:20 - Subjective Subjective: Still with headache but much better, no fevers, no dysuria currently. Objective - Vital Signs/Intake and Output Vital Signs (last 24 hours): Temp Pulse Resp BP Pulse Ox 98.9 F 83 20 105/64 97 09/23/17 08:51 09/23/17 08:51 09/23/17 08:51 09/23/17 08:51 09/23/17 08:51 Intake and Output: 09/23/17 09/23/17 06:59 18:59 Intake Total 1040 300 Balance 1040 300 - Medications Medications: Current Medications Acetaminophen (Tylenol 325mg Tab) 650 mg PO Q4 PRN PRN Reason: Headache Last Admin: 09/23/17 06:07 Dose: 650 mg Folic Acid (Folic Acid) 1 mg PO DAILY [facility] Last Admin: 09/23/17 12:25 Dose: 1 mg Ceftriaxone Sodium (Rocephin 2 Gm Ivpb) 2 gm in 100 mls @ 100 mls/hr IVPB Q12H [facility] PRN Reason: Protocol Last Admin: 09/23/17 14:07 Dose: 100 mls/hr Ampicillin 2 gm/ Sodium (Chloride) 100 mls @ 200 mls/hr IVPB Q4 [facility] PRN Reason: Protocol Last Admin: 09/23/17 12:26 Dose: 200 mls/hr Magnesium Oxide (Mag-Ox) 400 mg PO BID [facility] Last Admin: 09/23/17 12:26 Dose: 400 mg - Labs Labs: 09/23/17 06:30 09/23/17 06:30 - Constitutional Appears: Chronically Ill - Head Exam Head Exam: NORMAL INSPECTION - ENT Exam ENT Exam: Mucous Membranes Moist - Neck Exam Neck Exam: absent: Meningismus - Respiratory Exam Respiratory Exam: Decreased Breath Sounds - Cardiovascular Exam Cardiovascular Exam: +S1, +S2 - GI/Abdominal Exam GI & Abdominal Exam: Soft. absent: Tenderness Assessment and Plan - Assessment and Plan (Free Text) Plan: Assessment R/O UTI with gram positive cocci headache likely related to Plan On Ampicillin and Rocephin - can d/c Ampicillin and follow up identification and sensitivities of the gram positive cocci in the urine
--- NOTE | 2017-09-23 17:16 | CP.PCM.PN ---
<Eh Lang - Last Filed: 09/23/17 17:12> Subjective - Date & Time of Evaluation Date of Evaluation: 09/23/17 Time of Evaluation: 07:30 - Subjective Subjective: Eh Lang DO PGY1 - IM Progress Note Patient seen and examined at bedside. Per nursing staff, no acute events overnight. Yesterday, patient underwent workup for meningitis and cavernous sinus thrombosis. Index of suspicion was low, but soft signs of each were persistently present on exam. Today, headache is moderately improved. Nausea and vomiting has resolved. She denies photophobia, fever, chills. Denies chest pain, shortness of breath, abdominal pain. Denies dysuria, hematuria, urgency, or frequency. Objective - Vital Signs/Intake and Output Vital Signs (last 24 hours): Temp Pulse Resp BP Pulse Ox 98.6 F 76 18 126/78 100 09/23/17 14:00 09/23/17 14:00 09/23/17 14:00 09/23/17 14:00 09/23/17 14:00 Intake and Output: 09/23/17 09/23/17 06:59 18:59 Intake Total 1040 300 Balance 1040 300 - Medications Medications: Current Medications Acetaminophen (Tylenol 325mg Tab) 650 mg PO Q4 PRN PRN Reason: Headache Last Admin: 09/23/17 06:07 Dose: 650 mg Folic Acid (Folic Acid) 1 mg PO DAILY [facility] Last Admin: 09/23/17 12:25 Dose: 1 mg Ceftriaxone Sodium (Rocephin 2 Gm Ivpb) 2 gm in 100 mls @ 100 mls/hr IVPB Q12H [facility] PRN Reason: Protocol Last Admin: 09/23/17 14:07 Dose: 100 mls/hr Magnesium Oxide (Mag-Ox) 400 mg PO BID [facility] Last Admin: 09/23/17 12:26 Dose: 400 mg - Labs Labs: 09/23/17 06:30 09/23/17 06:30 - Constitutional Appears: Non-toxic, In Acute Distress (moderate, due to headache, 6/10 in severity) - Head Exam Head Exam: ATRAUMATIC, NORMOCEPHALIC - Eye Exam Eye Exam: EOMI, Normal appearance, PERRL Pupil Exam: NORMAL ACCOMODATION - ENT Exam ENT Exam: Mucous Membranes Moist - Neck Exam Neck Exam: Normal Inspection Additional comments: No stiffness. Severe vertex pain with flexion and extension, especially with rapid movements - Respiratory Exam Respiratory Exam: Clear to Ausculation Bilateral, NORMAL BREATHING PATTERN - Cardiovascular Exam Cardiovascular Exam: RRR, +S1, +S2 - GI/Abdominal Exam GI & Abdominal Exam: Soft, Normal Bowel Sounds. absent: Tenderness - Extremities Exam Extremities Exam: Normal Inspection. absent: Calf Tenderness, Pedal Edema - Neurological Exam Neurological Exam: Alert, Awake, CN II-XII Intact, Oriented x3 - Psychiatric Exam Psychiatric exam: Normal Affect, Normal Mood - Skin Skin Exam: Dry, Intact, Normal Color Assessment and Plan - Assessment and Plan (Free Text) Assessment: Patient is a 27 year old female with no significant past medical history of who was admitted for evaluation and treatment of a headache, nausea, and vomiting. Headache - Slightly improved with magnesium - Continue Mag Ox 400 PO BID per neurology - MRI/MRA/MRV unremarkable; no signs of acute thrombosis - LP attempted, unable to collect CSF - No meningismus, negative kernig, negative brudzniki - Mild leukocytosis; does not meet SIRS - Likely migraine vs induced Asymptomatic bacteruria - Urine culture shows gram positive cocci; unknown species and sentivities - Continue rocephin per ID Nausea/Vomitting - Resolved Prophylaxis - DVT ppx- scds - GI ppx- famotidine Patient case discussed with and plan approved by attending Dr. Benitez <Gilberto Benitez - Last Filed: 09/23/17 17:41> Objective - Vital Signs/Intake and Output Vital Signs (last 24 hours): Temp Pulse Resp BP Pulse Ox 98.6 F 76 18 126/78 100 09/23/17 14:00 09/23/17 14:00 09/23/17 14:00 09/23/17 14:00 09/23/17 14:00 - Medications Medications: Current Medications Acetaminophen (Tylenol 325mg Tab) 650 mg PO Q4 PRN PRN Reason: Headache Last Admin: 09/23/17 06:07 Dose: 650 mg Folic Acid (Folic Acid) 1 mg PO DAILY [facility] Last Admin: 09/23/17 12:25 Dose: 1 mg Ceftriaxone Sodium (Rocephin 2 Gm Ivpb) 2 gm in 100 mls @ 100 mls/hr IVPB Q12H [facility] PRN Reason: Protocol Last Admin: 09/23/17 14:07 Dose: 100 mls/hr Magnesium Oxide (Mag-Ox) 400 mg PO BID [facility] Last Admin: 09/23/17 17:22 Dose: 400 mg Attending/Attestation - Attestation I have personally seen and examined this patient.: Yes I have fully participated in the care of the patient.: Yes I have reviewed all pertinent clinical information, including history, physical exam and plan: Yes Notes (Text): 09/23/17 17:40 Medical record note made by the resident after discussion with my direction and input after the patient was personally seen and examined by me. I have reviewed the chart and agree that the record accurately reflects by personal performance of the history, physical exam, data review, and medical decision-making, in the course for the patient. I have also personally directed the plan of care.
[2017-09-23 23:14] VITALS: RESP 20
[2017-09-24] MEDS: cefTRIAXone 2 GM IN NS 2 GM/100 ML BAG IVPB SCH ×2 (02:33→13:19)
[2017-09-24 07:26] LABS: BASO # 0.02 K/mm3 (0.0-2.0); BASO % 0.2 % (0.0-3.0); EOS % 0.4 % (1.5-5.0); GRAN # 5.98 (1.4-6.5); GRAN % 62.2 % (50.0-68.0); HEMOGLOBIN 11.3 g/dL (12.0-16.0); MEAN CELL VOLUME 84.5 fl (80.0-105.0); MEAN CORPUSCULAR HEMOGLOBIN 28.3 pg (25.0-35.0); MEAN CORPUSCULAR HGB CONC 33.5 g/dl (31.0-37.0); MEAN PLATELET VOLUME 8.8 fl (7.0-11.0); MONO # 0.6 (0.1-0.6); MONO % 6.2 % (1.0-6.0); RBC 3.99 10^6/uL (3.5-6.1); RED CELL DISTRIBUTION WIDTH 14.2 % (11.5-14.5); WHITE BLOOD COUNT 9.6 10^3/ul (4.5-11.0)
[2017-09-24 07:42] LABS: ALB/GLOB RATIO 1.1 (1.1-1.8); ALBUMIN 3.7 g/dL (3.0-4.8); ALT/SGPT 14 U/L (7-56); AST/SGOT 17 U/L (14-36); BLOOD UREA NITROGEN 4 mg/dL (7-21); CALCIUM 9.6 mg/dL (8.4-10.5); GFR AFRICAN-AMERICAN > 60; GFR NON-AFRICAN AMERICAN > 60
[2017-09-24 08:00] VITALS: BP 111/63; PULSE 66; TEMP 98.7; O2SAT 100
[2017-09-24] MEDS: Magnesium Oxide 400 mg Tab UD PO SCH (10:32)
--- NOTE | 2017-09-24 12:55 | CP.PCM.PN ---
Subjective - Date & Time of Evaluation Date of Evaluation: 09/24/17 Time of Evaluation: 11:50 - Subjective Subjective: No fevers, not in distress, no dysuria and never had urinary symptoms, headache is better. Objective - Vital Signs/Intake and Output Vital Signs (last 24 hours): Temp Pulse Resp BP Pulse Ox 98.7 F 66 20 111/63 100 09/24/17 07:59 09/24/17 07:59 09/24/17 07:59 09/24/17 07:59 09/24/17 07:59 Intake and Output: 09/24/17 09/24/17 06:59 18:59 Intake Total 1320 Balance 1320 - Medications Medications: Current Medications Acetaminophen (Tylenol 325mg Tab) 650 mg PO Q4 PRN PRN Reason: Headache Last Admin: 09/24/17 07:27 Dose: 650 mg Folic Acid (Folic Acid) 1 mg PO DAILY [facility] Last Admin: 09/24/17 10:32 Dose: 1 mg Ceftriaxone Sodium (Rocephin 2 Gm Ivpb) 2 gm in 100 mls @ 100 mls/hr IVPB Q12H [facility] PRN Reason: Protocol Last Admin: 09/24/17 02:33 Dose: 100 mls/hr Magnesium Oxide (Mag-Ox) 400 mg PO BID [facility] Last Admin: 09/24/17 10:32 Dose: 400 mg - Labs Labs: 09/24/17 07:22 09/24/17 07:22 - Constitutional Appears: Non-toxic - Head Exam Head Exam: NORMAL INSPECTION - ENT Exam ENT Exam: Mucous Membranes Moist - Neck Exam Neck Exam: absent: Meningismus - Respiratory Exam Respiratory Exam: absent: Rales, Rhonchi - Cardiovascular Exam Cardiovascular Exam: +S1, +S2 - GI/Abdominal Exam GI & Abdominal Exam: Soft. absent: Tenderness - Back Exam Back Exam: absent: CVA tenderness (L), CVA tenderness (R) Assessment and Plan - Assessment and Plan (Free Text) Plan: Assessment Corynebacterium contamination of the urine, has received 3 days of antibiotics already headache likely related to Plan has been on Ampicillin and Rocephin - has received 3 days of worth of antibiotics, which is within the 3-7 day recommended course for asymptomatic bacteriuria in - Corynebacterium is usually just contamination of urine, not a regular carlos enrique in the urogenital tract causing UTI, but nevertheless still received enough antibiotics
--- NOTE | 2017-09-24 17:16 | CP.PCM.DIS ---
<PreciousEh - Last Filed: 09/24/17 17:05> Provider - Provider Date of Admission: 09/22/17 01:34 Attending physician: Gilberto Benitez MD Consults: Neuro: Maira ID: [id number] Time Spent in preparation of Discharge (in minutes): 45 Diagnosis - Discharge Diagnosis (1) Headache Status: Acute Priority: High (2) UTI (urinary tract infection) Status: Acute Hospital Course - Lab Results Lab Results: Micro Results 09/22/17 10:00 Blood-Venous Blood Culture - Preliminary NO GROWTH AFTER 48 HOURS 09/22/17 09:40 Blood-Venous Blood Culture - Preliminary NO GROWTH AFTER 48 HOURS Most Recent Lab Values WBC 9.6 10^3/ul (4.5-11.0) D 09/24/17 07:22 RBC 3.99 10^6/uL (3.5-6.1) 09/24/17 07:22 Hgb 11.3 g/dL (12.0-16.0) L 09/24/17 07:22 Hct 33.7 % (36.0-48.0) L 09/24/17 07:22 MCV 84.5 fl (80.0-105.0) 09/24/17 07:22 MCH 28.3 pg (25.0-35.0) 09/24/17 07:22 MCHC 33.5 g/dl (31.0-37.0) 09/24/17 07:22 RDW 14.2 % (11.5-14.5) 09/24/17 07:22 Plt Count 305 10^3/uL (120.0-450.0) 09/24/17 07:22 MPV 8.8 fl (7.0-11.0) 09/24/17 07:22 Gran % 62.2 % (50.0-68.0) 09/24/17 07:22 Lymph % (Auto) 31.0 % (22.0-35.0) 09/24/17 07:22 Verm[place] % (Auto) 6.2 % (1.0-6.0) H 09/24/17 07:22 Eos % (Auto) 0.4 % (1.5-5.0) L 09/24/17 07:22 Baso % (Auto) 0.2 % (0.0-3.0) 09/24/17 07:22 Gran # 5.98 (1.4-6.5) 09/24/17 07:22 Lymph # (Auto) 3.0 (1.2-3.4) 09/24/17 07:22 [place] # (Auto) 0.6 (0.1-0.6) 09/24/17 07:22 Eos # (Auto) 0.0 (0.0-0.7) 09/24/17 07:22 Baso # (Auto) 0.02 K/mm3 (0.0-2.0) 09/24/17 07:22 ESR 20 mm/hr (0.0-20.0) 09/22/17 14:00 Sodium 140 mmol/L (132-148) 09/24/17 07:22 Potassium 3.6 mmol/L (3.6-5.0) 09/24/17 07:22 Chloride 108 mmol/L (98-107) H 09/24/17 07:22 Carbon Dioxide 25 mmol/L (21-33) 09/24/17 07:22 Anion Gap 11 (10-20) 09/24/17 07:22 BUN 4 mg/dL (7-21) L 09/24/17 07:22 Creatinine 0.6 mg/dl (0.7-1.2) L 09/24/17 07:22 Est GFR ( Amer) > 60 09/24/17 07:22 Est GFR (Non-Af Amer) > 60 09/24/17 07:22 Random Glucose 93 mg/dL (70-110) 09/24/17 07:22 Calcium 9.6 mg/dL (8.4-10.5) 09/24/17 07:22 Magnesium 1.8 mg/dL (1.7-2.2) 09/22/17 02:30 Total Bilirubin 0.2 mg/dL (0.2-1.3) 09/24/17 07:22 AST 17 U/L (14-36) 09/24/17 07:22 ALT 14 U/L (7-56) 09/24/17 07:22 Alkaline Phosphatase 57 U/L (38-126) 09/24/17 07:22 C-Reactive Protein 15.70 mg/L (0.0-9.9) H 09/22/17 14:00 Total Protein 7.1 g/dL (5.8-8.3) 09/24/17 07:22 Albumin 3.7 g/dL (3.0-4.8) 09/24/17 07:22 Globulin 3.4 gm/dL 09/24/17 07:22 Albumin/Globulin Ratio 1.1 (1.1-1.8) 09/24/17 07:22 Urine Color Yellow (YELLOW) 09/21/17 09:46 Urine Appearance Sl cloudy (CLEAR) 09/21/17 09:46 Urine pH 6.5 (4.7-8.0) 09/21/17 09:46 Ur Specific [place] 1.025 (1.005-1.035) 09/21/17 09:46 Urine Protein Trace mg/dL (<30 mg/dL) H 09/21/17 09:46 Urine Glucose (UA) Negative mg/dL (NEGATIVE) 09/21/17 09:46 Urine Ketones >=80 mg/dL (NEGATIVE) 09/21/17 09:46 Urine Blood Negative (NEGATIVE) 09/21/17 09:46 Urine Nitrate Negative (NEGATIVE) 09/21/17 09:46 Urine Bilirubin Negative (NEGATIVE) 09/21/17 09:46 Urine Urobilinogen 0.2 E.U./dL (<1 E.U./dL) 09/21/17 09:46 Ur Leukocyte Esterase Small Esteban/uL (NEGATIVE) H 09/21/17 09:46 Urine RBC 0 - 2 /hpf (0-2) 09/21/17 09:46 Urine WBC 2 - 5 /hpf (0-6) 09/21/17 09:46 Ur Epithelial Cells Many /hpf (0-5) 09/21/17 09:46 Urine Bacteria Many (NEG) 09/21/17 09:46 HCA Screen Negative (Negative) 09/22/17 14:00 CHA Titer TEST NOT PERFORMED 09/22/17 14:00 CHA Titer 2 TEST NOT PERFORMED 09/22/17 14:00 CHA Pattern TEST NOT PERFORMED 09/22/17 14:00 CHA Pattern 2 TEST NOT PERFORMED 09/22/17 14:00 RPR Nonreactive (NONREACTIVE) 09/22/17 14:00 HIV 1&2 Ag/Ab, 4th Gen Nonreactive (Nonreactive) 09/22/17 14:00 - Hospital Course Hospital Course: Patient is a 27 year old female with no significant past medical history of who presents to the emergency department for evaluation and treatment of headache which began on 09/21/16 at approximately 5am. Pt states the headache woke her up from sleep without any specific provoking event, associated with 4 bouts of nausea and vomiting. On the day of admission, patient had physical exam findings concerning for meningitis, though with low clinic index of suspicion. Lumbar puncture was attempted, but no CSF sample was obtained. Patient had MRI/MRA/MRV without contrast which were unremarkable. Patient remained afebrile, without leukocytosis or any SIRS criteria. Headache improved with IV, then PO, magnesium. Patient was also found to have asymptomatic bacteruria, which was concerning, and was treated, because of her current . Today, patient feels much better overall, though still with mild headache. She remains afebrile, and denies nausea or vomiting. Patient was advised to follow up with clinic at [facility]. She was given prescriptions for folic acid and magnesium supplements. Patient was treated for three days with IV antibiotics for asymptomatic bacteruria, though the culture grew cornybacterium, which is likely a contaminant. All questions were answered to her satisfaction, and she was discharged to home. Discharge Exam - Head Exam Head Exam: NORMAL INSPECTION - Eye Exam Eye Exam: EOMI, Normal appearance, PERRL - ENT Exam ENT Exam: Mucous Membranes Moist - Neck Exam Neck exam: Normal Inspection - Respiratory Exam Respiratory Exam: Clear to PA & Lateral, NORMAL BREATHING PATTERN - Cardiovascular Exam Cardiovascular Exam: RRR, +S1, +S2 - GI/Abdominal Exam GI & Abdominal Exam: Normal Bowel Sounds, Soft. absent: Tenderness - Extremities Exam Extremities exam: full ROM, normal inspection - Neurological Exam Neurological exam: Alert, CN II-XII Intact, Oriented x3, Reflexes Normal - Psychiatric Exam Psychiatric exam: Normal Affect, Normal Mood - Skin Skin Exam: Dry, Intact, Normal Color Discharge Plan - Discharge Medications Prescriptions: Folic Acid 1 mg PO DAILY #30 tab Magnesium Oxide [Mag-Ox] 400 mg PO BID #60 tab - Follow Up Plan Condition: STABLE Disposition: HOME/ ROUTINE Instructions: How to Plan and Prepare for a Healthy , Urinary Tract Infection in Women (DC), Acute Headache (DC) Additional Instructions: - Continue taking folate once daily - Purchase a multivitamin over the counter and take as described on the bottle - Continue taking magnesium oxide 400mg twice daily for headache prevention; if you get diarrhea, can cut back to once daily, or discontinue altogether - For breakthrough pain, take tylenol; avoid taking motrin/advil/aleve/ibuprofen /aspirin - Follow up with your primary care doctor within one week - Follow up with OBGYN clinic at [facility] on [address] within one week - For any new or worsening concerns, contact your PCP immediately or return to the ER <Gilberto Benitez - Last Filed: 09/24/17 17:32> Provider - Provider Date of Admission: 09/22/17 01:34 Attending physician: Gilberto Benitez MD Hospital Course - Lab Results Lab Results: Micro Results 09/22/17 10:00 Blood-Venous Blood Culture - Preliminary NO GROWTH AFTER 48 HOURS 09/22/17 09:40 Blood-Venous Blood Culture - Preliminary NO GROWTH AFTER 48 HOURS Most Recent Lab Values WBC 9.6 10^3/ul (4.5-11.0) D 09/24/17 07:22 RBC 3.99 10^6/uL (3.5-6.1) 09/24/17 07:22 Hgb 11.3 g/dL (12.0-16.0) L 09/24/17 07:22 Hct 33.7 % (36.0-48.0) L 09/24/17 07:22 MCV 84.5 fl (80.0-105.0) 09/24/17 07:22 MCH 28.3 pg (25.0-35.0) 09/24/17 07:22 MCHC 33.5 g/dl (31.0-37.0) 09/24/17 07:22 RDW 14.2 % (11.5-14.5) 09/24/17 07:22 Plt Count 305 10^3/uL (120.0-450.0) 09/24/17 07:22 MPV 8.8 fl (7.0-11.0) 09/24/17 07:22 Gran % 62.2 % (50.0-68.0) 09/24/17 07:22 Lymph % (Auto) 31.0 % (22.0-35.0) 09/24/17 07:22 [place] % (Auto) 6.2 % (1.0-6.0) H 09/24/17 07:22 Eos % (Auto) 0.4 % (1.5-5.0) L 09/24/17 07:22 Baso % (Auto) 0.2 % (0.0-3.0) 09/24/17 07:22 Gran # 5.98 (1.4-6.5) 09/24/17 07:22 Lymph # (Auto) 3.0 (1.2-3.4) 09/24/17 07:22 [place] # (Auto) 0.6 (0.1-0.6) 09/24/17 07:22 Eos # (Auto) 0.0 (0.0-0.7) 09/24/17 07:22 Baso # (Auto) 0.02 K/mm3 (0.0-2.0) 09/24/17 07:22 ESR 20 mm/hr (0.0-20.0) 09/22/17 14:00 Sodium 140 mmol/L (132-148) 09/24/17 07:22 Potassium 3.6 mmol/L (3.6-5.0) 09/24/17 07:22 Chloride 108 mmol/L (98-107) H 09/24/17 07:22 Carbon Dioxide 25 mmol/L (21-33) 09/24/17 07:22 Anion Gap 11 (10-20) 09/24/17 07:22 BUN 4 mg/dL (7-21) L 09/24/17 07:22 Creatinine 0.6 mg/dl (0.7-1.2) L 09/24/17 07:22 Est GFR ( Amer) > 60 09/24/17 07:22 Est GFR (Non-Af Amer) > 60 09/24/17 07:22 Random Glucose 93 mg/dL (70-110) 09/24/17 07:22 Calcium 9.6 mg/dL (8.4-10.5) 09/24/17 07:22 Magnesium 1.8 mg/dL (1.7-2.2) 09/22/17 02:30 Total Bilirubin 0.2 mg/dL (0.2-1.3) 09/24/17 07:22 AST 17 U/L (14-36) 09/24/17 07:22 ALT 14 U/L (7-56) 09/24/17 07:22 Alkaline Phosphatase 57 U/L (38-126) 09/24/17 07:22 C-Reactive Protein 15.70 mg/L (0.0-9.9) H 09/22/17 14:00 Total Protein 7.1 g/dL (5.8-8.3) 09/24/17 07:22 Albumin 3.7 g/dL (3.0-4.8) 09/24/17 07:22 Globulin 3.4 gm/dL 09/24/17 07:22 Albumin/Globulin Ratio 1.1 (1.1-1.8) 09/24/17 07:22 Urine Color Yellow (YELLOW) 09/21/17 09:46 Urine Appearance Sl cloudy (CLEAR) 09/21/17 09:46 Urine pH 6.5 (4.7-8.0) 09/21/17 09:46 Ur Specific [place] 1.025 (1.005-1.035) 09/21/17 09:46 Urine Protein Trace mg/dL (<30 mg/dL) H 09/21/17 09:46 Urine Glucose (UA) Negative mg/dL (NEGATIVE) 09/21/17 09:46 Urine Ketones >=80 mg/dL (NEGATIVE) 09/21/17 09:46 Urine Blood Negative (NEGATIVE) 09/21/17 09:46 Urine Nitrate Negative (NEGATIVE) 09/21/17 09:46 Urine Bilirubin Negative (NEGATIVE) 09/21/17 09:46 Urine Urobilinogen 0.2 E.U./dL (<1 E.U./dL) 09/21/17 09:46 Ur Leukocyte Esterase Small Esteban/uL (NEGATIVE) H 09/21/17 09:46 Urine RBC 0 - 2 /hpf (0-2) 09/21/17 09:46 Urine WBC 2 - 5 /hpf (0-6) 09/21/17 09:46 Ur Epithelial Cells Many /hpf (0-5) 09/21/17 09:46 Urine Bacteria Many (NEG) 09/21/17 09:46 CHA Screen Negative (Negative) 09/22/17 14:00 CHA Titer TEST NOT PERFORMED 09/22/17 14:00 CHA Titer 2 TEST NOT PERFORMED 09/22/17 14:00 CHA Pattern TEST NOT PERFORMED 09/22/17 14:00 CHA Pattern 2 TEST NOT PERFORMED 09/22/17 14:00 RPR Nonreactive (NONREACTIVE) 09/22/17 14:00 HIV 1&2 Ag/Ab, 4th Gen Nonreactive (Nonreactive) 09/22/17 14:00 Attending/Attestation - Attestation I have personally seen and examined this patient.: Yes I have fully participated in the care of the patient.: Yes I have reviewed all pertinent clinical information, including history, physical exam and plan: Yes Notes (Text): 09/24/17 17:29 Medical record note made by the resident after discussion with my direction and input after the patient was personally seen and examined by me. I have reviewed the chart and agree that the record accurately reflects by personal performance of the history, physical exam, data review, and medical decision-making, in the course for the patient. I have also personally directed the plan of care. Patient is feeling better.Headache has improved.She is afebrile.Cultures are negative.Urine cultures are contaminated, already has completed 3 days of IV antibiotics.Antibiotics has been discontinued.ID evaluation is appreciated. She will be discharged home and will follow up with OBGYN. Management plan was discussed in detail with patient. Education was provided.
== END 2017-09-24 16:54 | disposition home or self-care (01) ==
LOC: ED 21:08 → ERH 09-22 01:34 → 5RSO 09-22 03:07 → OBSVTOIN 09-23 17:11 → INTOOBSV 09-23 17:11
PROVIDERS: ADMIT Internal Medicine; ATTEND Internal Medicine
DX: R51 Headache (principal); O09.31 Supervision of pregnancy with insufficient antenatal care, first trimester; O99.281 Endocrine, nutritional and metabolic diseases complicating pregnancy, first trimester; E87.6 Hypokalemia; O21.9 Vomiting of pregnancy, unspecified; Z3A.09 9 weeks gestation of pregnancy; Z87.440 Personal history of urinary (tract) infections; O26.891 Other specified pregnancy related conditions, first trimester; R82.71 Bacteriuria; R40.2412 Glasgow coma scale score 13-15, at arrival to emergency department
CPT/HCPCS: 36415; 62272; 70544; 70551; 80053; 81001; 83735; 85025; 85651; 86038; 86039; 86140; 86592; 87040; 87086; 87389; 93005; 96374; 96375; 96376; 99285; G0378; J0290; J0696; J1200; J2765; J3475; J3480; J7040

== ENCOUNTER 2017-09-26 01:13 | Emergency (ER) | payer OTHER ==
[2017-09-26 01:14] VITALS: BMI 32.3
[2017-09-26 01:31] VITALS: RESP 18; TEMP 97.4
--- NOTE | 2017-09-26 01:35 | ED PDOC ---
Arrival/HPI - General Chief Complaint: Headache Time Seen by Provider: 09/26/17 01:25 Historian: Patient - History of Present Illness Narrative History of Present Illness (Text): 09/26/17 01:35 Tika Quiles is a 27 year old female, P:0, currently 10 weeks , who presents to the Emergency department complaining of headache. Patient states she was recently discharged from the hospital following evaluation and treatment of headache. Patient was seen by neurology and underwent a brain MRI and head MRA, which were unremarkable. Patient states she has been experiencing a posterior headache similar to previous episode since she was discharged on 08/2017. Patient was discharged on folic acid and magnesium, but denies any significant relief. Patient denies any fever, chills, chest pain, shortness of breath, nausea, vomiting, diarrhea, urinary symptoms, back pain, neck pain, dizziness, or any other complaints. Symptom Onset: Gradual Symptom Course: Unchanged Activities at Onset: Light Context: Home Past Medical History - Provider Review Nursing Documentation Reviewed: Yes - Infectious Disease Hx of Infectious Diseases: None - Cardiac Hx Cardiac Disorders: No - Pulmonary Hx Respiratory Disorders: No - Neurological Hx Neurological Disorder: No - HEENT Hx HEENT Disorder: No - Renal Hx Renal Disorder: No - Endocrine/Metabolic Hx Endocrine Disorders: No - Hematological/Oncological Hx Blood Disorders: No - Integumentary Hx Dermatological Disorder: No - Musculoskeletal/Rheumatological Hx Musculoskeletal Disorders: No - Gastrointestinal Hx Gastrointestinal Disorders: No - Genitourinary/Gynecological Hx Genitourinary Disorders: Yes Hx Urinary Tract Infection: Yes Other/Comment: 10 weeks - Psychiatric Hx Psychophysiologic Disorder: No Hx Substance Use: No - Anesthesia Hx Anesthesia: No Hx Anesthesia Reactions: No Hx Malignant Hyperthermia: No Family/Social History - Physician Review Nursing Documentation Reviewed: Yes Family/Social History: Unknown Family HX Smoking Status: Never Smoked Hx Alcohol Use: No Hx Substance Use: No Allergies/Home Meds Allergies/Adverse Reactions: Allergies No Known Allergies Allergy (Verified 09/26/17 01:24) Review of Systems - Physician Review All systems were reviewed & negative as marked: Yes - Review of Systems Constitutional: Normal. absent: Fevers Eyes: Normal ENT: Normal Respiratory: Normal. absent: SOB, Cough Cardiovascular: Normal. absent: Chest Pain Gastrointestinal: Normal. absent: Abdominal Pain, Diarrhea, Nausea, Vomiting Genitourinary Female: Normal. absent: Dysuria, Frequency, Hematuria, Urine Output Changes Musculoskeletal: Normal. absent: Back Pain, Neck Pain Skin: Normal. absent: Rash Neurological: Headache. absent: Dizziness Endocrine: Normal Hemo/Lymphatic: Normal Psychiatric: Normal Physical Exam Vital Signs Reviewed: Yes Vital Signs Temp Pulse Resp BP Pulse Ox 09/26/17 01:29 97.4 F L 79 18 109/73 100 Temperature: Afebrile Blood Pressure: Normal Pulse: Regular Respiratory Rate: Normal Appearance: Positive for: Well-Appearing, Non-Toxic, Uncomfortable Pain Distress: None Mental Status: Positive for: Alert and Oriented X 3 - Systems Exam Head: Present: Atraumatic, Normocephalic Pupils: Present: PERRL Extroacular Muscles: Present: EOMI Conjunctiva: Present: Normal Mouth: Present: Moist Mucous Membranes Neck: Present: Normal Range of Motion Respiratory/Chest: Present: Clear to Auscultation, Good Air Exchange. No: Respiratory Distress, Accessory Muscle Use Cardiovascular: Present: Regular Rate and Rhythm, Normal S1, S2. No: Murmurs Abdomen: No: Tenderness, Distention, Peritoneal Signs Back: Present: Normal Inspection Upper Extremity: Present: Normal Inspection. No: Cyanosis, Edema Lower Extremity: Present: Normal Inspection. No: Edema Neurological: Present: GCS=15, CN II-XII Intact, Speech Normal, Motor Func Grossly Intact, Normal Sensory Function, Normal Cerebellar Funct, Gait Normal, Memory Normal Skin: Present: Warm, Dry, Normal Color. No: Rashes Psychiatric: Present: Alert, Oriented x 3, Normal Insight, Normal Concentration Medical Decision Making ED Course and Treatment: 09/26/17 01:35 Impression: 27 year old female complaining of a posterior headache for the few days. Plan: -- Labs, Beta-HCG, blood type and screen -- Urinalysis -- IV fluids -- Benadryl -- Reglan -- Tylenol -- Reassess and disposition Prior Visits: Notes and results from previous visits were reviewed. On 09/21/2017, pt was seen in the Emergency department for headache. Pt was admitted to the hospital for further evaluation. Pt was seen by neurology. Pt underwent a brain MRI and head MRA, which were unremarkable. Lumbar Puncture was attempted during her stay, but CSF was unobtainable. Pt was d/c home on 08/2017 after symptoms improved. Progress Notes: 09/26/17 03:26 On re-assessment, pt now states she feels wells for discharge. States she does not want observation/admission to the hospital. Beside US performed, confirms IUP. Patient in agreement with plan to be discharged home. Patient is stable for discharge. Patient was instructed to follow up with physician or return if symptoms worsen or new concerning symptoms arise. noted pt was previously obtained lp, hwover was unsuccessful. pt refuses lp today. pt is offered repeat admission, however declines. 09/26/17 03:48 - Lab Interpretations Lab Results: 09/26/17 02:02 09/26/17 02:02 Lab Results 09/26/17 02:24: Urine Color Straw, Urine Appearance Clear, Urine pH 7.0, Ur Specific [place] <= 1.005, Urine Protein Negative, Urine Glucose (UA) Negative, Urine Ketones Negative, Urine Blood Trace-lysed H, Urine Nitrate Negative, Urine Bilirubin Negative, Urine Urobilinogen 0.2, Ur Leukocyte Esterase Small H , Urine RBC 0 - 2, Urine WBC 1 - 3, Ur Epithelial Cells 6 - 8, Urine Bacteria Rare, Urine HCG, Qual Positive 09/26/17 02:03: Blood Type Pending, Antibody Screen Pending, BBK History Checked No verified bt 09/26/17 02:02: Beta HCG, Quant [id number] H 09/26/17 02:02: Sodium 140, Potassium 3.6, Chloride 103, Carbon Dioxide 23, Anion Gap 17, BUN 3 L, Creatinine 0.6 L, Est GFR ( Amer) > 60, Est GFR ( Non-Af Amer) > 60, Random Glucose 94, Calcium 10.1, Magnesium 2.1, Total Bilirubin 0.3, AST 27, ALT 28, Alkaline Phosphatase 74, Total Protein 8.5 H, Albumin 4.6, Globulin 3.9, Albumin/Globulin Ratio 1.2 09/26/17 02:02: PT 12.5, INR 1.09 H, APTT 29.8 09/26/17 02:02: WBC 9.3, RBC 4.41, Hgb 12.6, Hct 37.2, MCV 84.4, MCH 28.6, MCHC 33.9, RDW 13.8, Plt Count 366, MPV 9.2, Gran % 61.4, Lymph % (Auto) 31.3, [place] % (Auto) 6.5 H, Eos % (Auto) 0.6 L, Baso % (Auto) 0.2, Gran # 5.69, Lymph # ( Auto) 2.9, [place] # (Auto) 0.6, Eos # (Auto) 0.1, Baso # (Auto) 0.02 I have reviewed the lab results: Yes - Medication Orders Current Medication Orders: Discontinued Medications Acetaminophen (Tylenol 325mg Tab) 650 mg PO STAT STA Stop: 09/26/17 01:37 Last Admin: 09/26/17 02:16 Dose: 650 mg MAR Pain/Vitals Document 09/26/17 02:16 SS (Rec: 09/26/17 02:16 SS [id number]) Pain Reassessment Is This A Pain ReAssessment? No Presence of Pain Presence of Pain Yes Location Pain Location [facility] [employer] Diphenhydramine HCl (Benadryl) 25 mg IVP STAT STA Stop: 09/26/17 01:37 Last Admin: 09/26/17 02:16 Dose: 25 mg IVP Administration Document 09/26/17 02:16 SS (Rec: 09/26/17 02:16 SS [id number]) Charges for Administration # of IVP Administrations 1 Sodium Chloride (Sodium Chloride 0.9%) 1,000 mls @ 999 mls/hr IV .Q1H1M STA Stop: 09/26/17 03:01 Last Admin: 09/26/17 02:16 Dose: 999 mls/hr eMAR Start Stop Document 09/26/17 02:16 SS (Rec: 09/26/17 02:16 SS [id number]) Intravenous Solution Start Date 09/26/17 Start Time 02:16 End Date 09/26/17 End time 03:16 Total Infusion Time 60 Metoclopramide HCl (Reglan) 10 mg IVP STAT STA Stop: 09/26/17 01:37 Last Admin: 09/26/17 02:12 Dose: 10 mg IVP Administration Document 09/26/17 02:12 SS (Rec: 09/26/17 02:15 SS [id number]) Charges for Administration # of IVP Administrations 1 - Scribe Statement The provider has reviewed the documentation as recorded by the Scribjessica Anderson Sylvia Provider Scribe Attestation: All medical record entries made by the Scribe were at my direction and personally dictated by me. I have reviewed the chart and agree that the record accurately reflects my personal performance of the history, physical exam, medical decision making, and the department course for this patient. I have also personally directed, reviewed, and agree with the discharge instructions and disposition. Disposition/Present on Arrival - Present on Arrival Any Indicators Present on Arrival: No History of DVT/PE: No History of Uncontrolled Diabetes: No Urinary Catheter: No History of Decub. Ulcer: No History Surgical Site Infection Following: None - Disposition Have Diagnosis and Disposition been Completed?: Yes Diagnosis: Headache Disposition: HOME/ ROUTINE Disposition Time: 04:00 Patient Problems: Current Active Problems Problem Status Onset Headache Acute Condition: STABLE Discharge Instructions (ExitCare): Headache, Adult Additional Instructions: please follow up with your doctor. return to er with worsening symptoms or concerns. Referrals: [facility] [Outside] - Follow up with primary [facility] [Outside] - Follow up with primary Manjinder Rao MD [Staff Provider] - Follow up with primary Forms: [facility] (Slovak)
[2017-09-26] MEDS ORDERED: DiphenhydrAMINE 50 mg/ml Inj IVP STA (01:36)
[2017-09-26] MEDS ORDERED: Sodium Chloride 0.9% 1,000 ML IV STA (02:01)
[2017-09-26 02:28] LABS: BASO # 0.02 K/mm3 (0.0-2.0); BASO % 0.2 % (0.0-3.0); EOS # 0.1 (0.0-0.7); EOS % 0.6 % (1.5-5.0); GRAN # 5.69 (1.4-6.5); GRAN % 61.4 % (50.0-68.0); HEMOGLOBIN 12.6 g/dL (12.0-16.0); LYMPH # 2.9 (1.2-3.4); LYMPH % 31.3 % (22.0-35.0); MEAN CELL VOLUME 84.4 fl (80.0-105.0); MEAN CORPUSCULAR HEMOGLOBIN 28.6 pg (25.0-35.0); MEAN CORPUSCULAR HGB CONC 33.9 g/dl (31.0-37.0); MEAN PLATELET VOLUME 9.2 fl (7.0-11.0); MONO # 0.6 (0.1-0.6); MONO % 6.5 % (1.0-6.0); RBC 4.41 10^6/uL (3.5-6.1); RED CELL DISTRIBUTION WIDTH 13.8 % (11.5-14.5); WHITE BLOOD COUNT 9.3 10^3/ul (4.5-11.0)
[2017-09-26 02:41] LABS: ALB/GLOB RATIO 1.2 (1.1-1.8); ALBUMIN 4.6 g/dL (3.0-4.8); ALT/SGPT 28 U/L (7-56); AST/SGOT 27 U/L (14-36); BLOOD UREA NITROGEN 3 mg/dL (7-21); CALCIUM 10.1 mg/dL (8.4-10.5); GFR AFRICAN-AMERICAN > 60; GFR NON-AFRICAN AMERICAN > 60
[2017-09-26 02:41] LABS: URINE BILIRUBIN NEGATIVE (NEGATIVE); URINE BLOOD TRACE-LYSED (NEGATIVE); URINE GLUCOSE (UA) NEGATIVE (NEGATIVE); URINE LEUKOCYTE ESTERASE SMALL Leu/uL (NEGATIVE); URINE PROTEIN NEGATIVE mg/dL (<30 mg/dL); URINE UROBILINOGEN 0.2 E.U./dL (<1 E.U./dL)
[2017-09-26 02:46] LABS: URINE APPEARANCE CLEAR (CLEAR); URINE COLOR STRAW (YELLOW)
[2017-09-26 02:48] LABS: INR 1.09 (0.93-1.08); PARTIAL THROMBOPLASTIN TIME 29.8 Seconds (25.1-36.5); PROTHROMBIN TIME 12.5 SECONDS (9.4-12.5)
[2017-09-26 02:51] LABS: HCG,QUALITATIVE URINE POSITIVE (NEGATIVE)
[2017-09-26 02:56] LABS: URINE RBC 0 - 2 /hpf (0-2)
[2017-09-26 02:57] LABS: URINE BACTERIA RARE (NEG)
[2017-09-26 04:02] VITALS: BP 110/78; PULSE 81; O2SAT 98
== END 2017-09-26 04:01 | disposition home or self-care (01) ==
LOC: ED 01:13
DX: R51 Headache (principal); O26.91 Pregnancy related conditions, unspecified, first trimester; Z3A.10 10 weeks gestation of pregnancy
CPT/HCPCS: 80053; 81001; 83735; 84702; 84703; 85025; 85610; 85730; 86850; 86900; 87086; 96361; 96374; 96375; 99285; J1200; J2765; J7040